=== PATIENT | male | born 1950 | race Caucasian/White ===

== ENCOUNTER 2018-09-06 23:47 | Emergency (ER) | payer BC, OTHER ==
[2018-09-06 23:55] VITALS: PULSE 83; TEMP 97.4; BMI 26.5
--- NOTE | 2018-09-07 00:12 | PDOC ---
History of Present Illness - General Chief Complaint: Blood Pressure Problem Stated Complaint: HIGH BLOOD PRESSURE Time Seen by Provider: 09/07/18 00:12 History Source: Patient Exam Limitations: No Limitations - History of Present Illness Initial Comments: 09/07/18 00:16 This is a 67-year-old male who comes in complaining of a panic attack and high blood pressure secondary to his panic attack. Patient had a panic attack because he has nasal congestion and said that he can't breathe when he goes to sleep and so he wakes up panicking. Patient took his blood pressure after he panicked and it was 172 systolic so he came in for evaluation. Patient denied any shortness of breath, chest pain, nausea, diaphoresis or any other complaints. By the time patient got to the emergency department his blood pressure was 158 systolic. Patient said that is his normal blood pressure. Patient says he doesn't like to take medication so takes natural medication for his blood pressure. Allergies: None Past Medical History: none Social history: Lives with family. No smoking. No alcohol. No illicit drugs. Surgical history: None General: No fevers or chills, no weakness, no weight loss HEENT: No change in vision. No sore throat,. No ear pain CardioVascular: no chest discomfort. No shortness of breath Respiratory:No cough, or wheezing. Gastrointestinal: no nausea, vomiting, diarrhea or constipation, No rectal bleeding Genitourinary: No dysuria, hematuria, or frequency Musculoskeletal: No joint or muscle pain or swelling Neurologic: No headache, vertigo, dizziness or loss of consciousness Psychiatric: nor depression Skin: No rashes or easy bruising Endocrine: no increased thirst or abnormal weight change Allergic: no skin or latex allergy All other systems reviewed and normal GENERAL: The patient is awake, alert, and fully oriented, in no acute distress. HEAD: Normal with no signs of trauma. EYES: Pupils equal, round and reactive to light, extraocular movements intact, sclera anicteric, conjunctiva clear. EXTREMITIES:atraumatic, Normal range of motion, no edema. NEUROLOGICAL: Normal speech, normal gait. PSYCH: Normal mood, normal affect. SKIN: Warm, Dry, normal turgor, no rashes or lesions noted. Assessment and plan: This is a 22-year-old male with mildly elevated blood pressure secondary to anxiety. Patient discharged home told to use a humidifier in his room you some Vicks, use some NyQuil and follow up with his doctor on Sunday to get started on some medication for his blood pressure Past History - Past Medical History Allergies/Adverse Reactions: Allergies Allergy/AdvReac Type Severity Reaction Status Date / Time No Known Allergies Allergy Unverified 09/06/18 23:51 Home Medications: Ambulatory Orders NK [No Known Home Medication] 09/06/18 COPD: No HTN: Yes - Suicide/Smoking/Psychosocial Hx Smoking History: Never smoked *Physical Exam - Vital Signs Last Vital Signs Temp Pulse Resp BP Pulse Ox 97.4 F L 83 16 172/91 H 100 09/06/18 23:52 09/06/18 23:52 09/06/18 23:52 09/06/18 23:52 09/06/18 23:52 Moderate Sedation - Procedure Monitoring Vital Signs: Procedure Monitoring Vital Signs Temperature 97.4 F L 09/06/18 23:52 Pulse Rate 83 09/06/18 23:52 Respiratory Rate 16 09/06/18 23:52 Blood Pressure 172/91 H 09/06/18 23:52 O2 Sat by Pulse Oximetry (%) 100 09/06/18 23:52 *DC/Admit/Observation/Transfer Diagnosis at time of Disposition: Essential hypertension, Nasal congestion, Anxiety - Discharge Dispostion Disposition: HOME Condition at time of disposition: Stable Decision to Admit order: No - Referrals Referrals: Kunal Gamboa [Primary Care Provider] - - Patient Instructions Additional Instructions: Is important that you follow-up with your doctor on Sunday and get started on some medication for your blood pressure. On the pharmacy and get a humidifier for your room, get some decongestant such as NyQuil and sleep with your head propped up. Also can get some 6 and put that in the humidifier which will help with the breathing. Return to the emergency department immediately with ANY new, persistent or worsening symptoms. Continue any medications as previously prescribed by your physician. You should follow up with your primary doctor as soon as possible regarding today's emergency department visit. . Please make sure your doctor reviews the results of your emergency evaluation. Thank you for coming to the Emergency Department today for your care. It was a pleasure to see you today. Please note that your evaluation is INCOMPLETE until you follow-up with your doctor. - Post Discharge Activity
[2018-09-07 00:13] VITALS: BP 158/89
== END 2018-09-07 00:22 | disposition home or self-care (01) ==
LOC: FER 23:47
DX: I10 Essential (primary) hypertension (principal); R09.81 Nasal congestion; F41.9 Anxiety disorder, unspecified
CPT/HCPCS: 99281-25

== ENCOUNTER 2022-03-27 07:26 | Day surgery (SDC) | payer OTHER ==
[2022-03-23 10:23] VITALS: BMI 26.6
[2022-03-27] MEDS ORDERED: PROPOFOL 80 ML ONE (07:43)
[2022-03-27 07:54] VITALS: RESP 16; TEMP 98.2
[2022-03-27 13:23] VITALS: BP 96/56; PULSE 65
== END 2022-03-27 10:10 | disposition home or self-care (01) ==
LOC: FASU-ENDO 07:26
PROVIDERS: ATTEND Internal Medicine Gastroenterology
PROC: 0DJD8ZZ Inspection of Lower Intestinal Tract, Via Natural or Artificial Opening Endoscopic (ICD-10-PCS; principal; 2022-03-27 09:25)
DX: Z12.11 Encounter for screening for malignant neoplasm of colon (principal); Z86.010 Personal history of colon polyps

== ENCOUNTER 2022-08-06 10:41 | Emergency (ER) | payer OTHER ==
[2022-08-06 10:55] VITALS: BP 187/91; PULSE 77; RESP 16; TEMP 98.7; BMI 26.6
== END 2022-08-06 11:47 | disposition home or self-care (01) ==
LOC: FER 10:41
DX: K08.89 Other specified disorders of teeth and supporting structures (principal)
CPT/HCPCS: 99281-25